=== PATIENT | female | born 1980 | race American Indian/Alaskan Native ===

== ENCOUNTER 2016-09-24 17:57 | Inpatient (IN) | payer MEDICARE ==
[2016-09-24] MEDS ORDERED: NACL 0.9% 1000 ML 1,000 ML IV ONE ×2 (19:42→23:34)
[2016-09-24] MEDS ORDERED: MORPHINE IV ONE (19:42)
--- NOTE | 2016-09-24 19:48 | Emergency Department Report ---
ED Chest Pain HPI - General Chief Complaint: Chest Pain Stated Complaint: CHEST PAIN/LUPUS/DIABETES Time Seen by Provider: 09/24/16 19:06 Source: patient Mode of arrival: Wheelchair Limitations: No Limitations - History of Present Illness Initial Comments: This is a 35-year-old -[place] female who presents to the emergency department, driven in by her , with complaint of a 2 day history of left- sided chest pain with radiation up into the left jaw as well as down into the left arm and leg. It is associated with some nausea and vomiting and the patient says she is unable to keep anything down. She tried a nitroglycerin and said it did not help. She also complains of some palpitations with tachycardia. There is shortness of breath but she denies any cough or wheezing. She has a history of CHF, insulin-dependent diabetes, hypertension and lupus. Patient has required chemotherapeutic drugs in the past for her lupus. She believes this is a lupus exacerbation. She has a primary care doctor but has not been able to see them regarding her symptoms. 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 She denies any history of CO, CVA, PE/DVT. No recent travel or sick contacts at home. Severity scale (0 -10): 9 - Related Data Allergies Allergy/AdvReac Type Severity Reaction Status Date / Time ketorolac tromethamine Allergy Swelling Verified 09/24/16 18:19 [From Toradol] metoclopramide HCl Allergy Anaphylaxis Verified 09/24/16 18:19 [From Reglan] ondansetron HCl Allergy Swelling Verified 09/24/16 18:19 [From Zofran (as hydrochloride)] EITAN score - Eitan Score Age > 65: (0) No Aspirin use within the Past 7 Days: (0) No 3 or more CAD Risk Factors: (1) Yes 2 or more Angina events in past 24 hrs: (1) Yes Known CAD with more than 50% Stenosis: (0) No Elevated Cardiac Markers: (0) No ST Deviation Greater than 0.5mm: (0) No EITAN Score: 2 ED Review of Systems ROS: Stated complaint: CHEST PAIN/LUPUS/DIABETES Other details as noted in HPI Comment: All other systems reviewed and negative Constitutional: denies: chills, fever Eyes: denies: eye pain, eye discharge, vision change ENT: denies: ear pain, throat pain Respiratory: shortness of breath. denies: cough Cardiovascular: chest pain, palpitations Gastrointestinal: nausea, vomiting Genitourinary: denies: urgency, dysuria, discharge Musculoskeletal: myalgia. denies: back pain, joint swelling, arthralgia Skin: denies: rash, lesions Neurological: denies: headache, weakness, paresthesias ED Past Medical Hx - Past Medical History Hx Hypertension: Yes Hx Congestive Heart Failure: Yes Hx Diabetes: Yes Additional medical history: LUPUS - Surgical History Hx Cholecystectomy: Yes Hx Appendectomy: Yes Additional Surgical History: TUMMY TUCK. PEG TUBE AND REMOVAL. X 3 - Social History Smoking Status: Never Smoker Substance Use Type: Prescribed ED Physical Exam - General Limitations: No Limitations - Other Other exam information: GENERAL: The patient is well-developed well-nourished. HEENT: Normocephalic. Atraumatic. Extraocular motions are intact. Patient has moist mucous membranes. Pupils equal reactive to light bilaterally. NECK: Supple. Trachea is midline. CHEST/LUNGS: Clear to auscultation. There is no respiratory distress noted. Chest pain is not reproducible to palpation of the chest wall. HEART/CARDIOVASCULAR: Regular. There is moderate tachycardia. There is no gallop rub or murmur. ABDOMEN: Abdomen is soft, nontender. Patient has normal bowel sounds. There is no abdominal distention. SKIN: There is no rash. There is no diaphoresis. NEURO: The patient is awake, alert, and oriented. The patient is cooperative. The patient has no focal neurologic deficits. The patient has normal speech. Cranial nerves II through XII grossly intact. MUSCULOSKELETAL: There is no tenderness or deformity. There is no limitation range of motion. There is no evidence of acute injury. ED Course Vital Signs 09/24/16 09/24/16 09/24/16 18:10 19:05 20:51 Temperature 98.4 F 98.8 F Pulse Rate 134 H 126 H Respiratory 26 H 14 14 Rate Blood Pressure 161/104 Blood Pressure 136/80 [Left] O2 Sat by Pulse 100 99 Oximetry 09/24/16 09/24/16 22:32 23:02 Temperature Pulse Rate Respiratory 14 16 Rate Blood Pressure Blood Pressure [Left] O2 Sat by Pulse Oximetry ED Medical Decision Making - Lab Data Result diagrams: 09/24/16 20:44 09/24/16 23:45 - EKG Data -: EKG Interpreted by Me EKG shows normal: sinus rhythm, axis, intervals (prolonged QTC), QRS complexes ( Q waves to the anterior leads), ST-T waves (nonspecific ST-T changes) Rate: tachycardia (130 bpm) - EKG Data When compared to previous EKG there are: previous EKG unavailable Interpretation: other (sinus tachycardia, Q waves to the septal leads, prolonged QTC) - Radiology Data Radiology results: report reviewed, image reviewed interpreted by me: Chest x-ray did not show any acute process. Heart is normal shape and size. No effusions. No pneumothorax. No signs of pneumonia seen. Ventilation perfusion scan is negative for pulmonary embolism. - Medical Decision Making This is a 35-year-old female with a history of lupus, diabetes and CHF who presents with a 2 day history of chest pain, shortness of breath and nausea with vomiting. Patient's vital signs are slightly abnormal as the patient has some moderate tachycardia between 1:30 and 140. EKG does not show any ST elevation CO or significant dysrhythmia. Patient appears to be in diabetic ketoacidosis. She does not have significant acidosis on her venous pH but she does have a elevated anion gap of 28, a blood sugar of greater than 400 and ketones in the blood and urine. Patient started on insulin drip and given IV fluid resuscitation. Due to her chest pain, tachycardia and shortness of breath , a d-dimer was ordered and came back elevated and equivocal. For this reason a CT angiography of the chest was going to be done but were unable to get a 20- gauge IV secondary to her dehydration and history of multiple IVs and venous sticks. For this reason a VQ scan was done and came back negative or low probability for pulmonary embolism. Patient will be admitted to the hospital for further evaluation and treatment. She has been graciously accepted by the hospitalist, Dr. Orellana. - Differential Diagnosis DKA, HHNK, CO, PE, pneumonia Critical Care Time: No Critical care attestation.: If time is entered above; I have spent that time in minutes in the direct care of this critically ill patient, excluding procedure time. ED Disposition Clinical Impression: Lupus, Dehydration Diabetic ketoacidosis Qualifiers: Diabetes mellitus type: type 1 Diabetes mellitus complication detail: without coma Qualified Code(s): E10.10 - Type 1 diabetes mellitus with ketoacidosis without coma Chest pain Qualifiers: Chest pain type: unspecified Qualified Code(s): R07.9 - Chest pain, unspecified Nausea and vomiting Qualifiers: Vomiting type: unspecified Vomiting Intractability: non-intractable Qualified Code(s): R11.2 - Nausea with vomiting, unspecified Disposition: OP ADMITTED IP TO THIS HOSP Is pt being admited?: Yes Does the pt Need Aspirin: Yes Condition: Fair Instructions: Diabetic Ketoacidosis (ED), Chest Pain (ED) Time of Disposition: 01:38
[2016-09-24] MEDS ORDERED: BENADRYL IV ONE (20:52)
[2016-09-24 20:56] LABS: Basophils % (Auto) 0.4 % (0.0-1.8); Hematocrit 40.8 % (30.3-42.9); Hemoglobin 13.6 gm/dl (10.1-14.3); Mean Corpuscular HGB Conc 33 % (30-34); Mean Corpuscular Hemoglobin 27 pg (28-32); Mean Corpuscular Volume 79 fl (79-97); Platelet Count 208 K/mm3 (140-440); Red Blood Count 5.14 M/mm3 (3.65-5.03); Red Cell Distribution Width 13.8 % (13.2-15.2); White Blood Count 9.1 K/mm3 (4.5-11.0)
[2016-09-24 21:16] LABS: Anion Gap 26 mmol/L; Blood Urea Nitrogen 8 mg/dL (7-17); Calcium 9.5 mg/dL (8.4-10.2); Carbon Dioxide 16 mmol/L (22-30); Chloride 94.2 mmol/L (98-107); Glucose 406 mg/dL (65-100); Potassium 4.1 mmol/L (3.6-5.0); Sodium 132 mmol/L (137-145)
[2016-09-24] MEDS ORDERED: NACL ONE (21:29)
[2016-09-24] MEDS ORDERED: DILAUDID IV ONE (22:20)
[2016-09-24] MEDS ORDERED: ATARAX PO ONE (22:33)
[2016-09-24] MEDS ORDERED: COMPAZINE IV ONE (22:51)
[2016-09-24] MEDS ORDERED: D50W (25GM) IV PRN (23:23)
[2016-09-25 00:20] LABS: Phosphorous 3.8 mg/dL (2.5-4.5)
[2016-09-25] MEDS ORDERED: DILAUDID IV ONE (01:06)
[2016-09-25] MEDS ORDERED: BENADRYL IV ONE (01:07)
--- NOTE | 2016-09-25 01:09 | Nuclear Medicine Report ---
FINAL REPORT PROCEDURE: NM LUNG SCAN PERF/VENT TECHNIQUE: Five mCi Tc-99m MAA was injected IV for pulmonary perfusion imaging in multiple projections. Fifteen mCi Xenon 133 gas was inhaled for pulmonary ventilation imaging in multiple projections. Injection site: RIGHT antecubital fossa. CPT 49956 HISTORY: CP, elevated dimer COMPARISON: Chest radiograph of the same date FINDINGS: Perfusion: No defects . Ventilation: No defects . IMPRESSION: Normal Examination
[2016-09-25 01:10] LABS: Blood Urea Nitrogen 8 mg/dL (7-17); Calcium 9.5 mg/dL (8.4-10.2); Carbon Dioxide 16 mmol/L (22-30); Chloride 100.4 mmol/L (98-107); Glucose 341 mg/dL (65-100); Potassium 4.3 mmol/L (3.6-5.0); Sodium 140 mmol/L (137-145)
[2016-09-25 01:20] LABS: Anion Gap 28 mmol/L
[2016-09-25 02:06] LABS: Anion Gap 27 mmol/L; Blood Urea Nitrogen 8 mg/dL (7-17); Calcium 9.5 mg/dL (8.4-10.2); Carbon Dioxide 16 mmol/L (22-30); Chloride 98.3 mmol/L (98-107); Glucose 320 mg/dL (65-100); Potassium 4.7 mmol/L (3.6-5.0); Sodium 137 mmol/L (137-145)
[2016-09-25] MEDS: NovoLIN R 100 UNITS in NACL 0.9% 99 ML IV SCH ×4 (02:08→06:01)
--- NOTE | 2016-09-25 02:37 | History and Physical Report ---
History of Present Illness Date of examination: 09/25/16 History of present illness: 35-year-old man with a history of hypertension, diabetes, lupus comes emergency room with complaints of 2 days of nausea vomiting chest pain. Pain starts in the left arm radiating to the jaw and to the left anterior chest which she describes as a sharp pain, constant, intensity 6/10. She cannot identify exacerbating or relieving factors. Admits to shortness breath, palpitation and diaphoresis. Patient states she always has palpitation Patient denies cough, abdominal pain, hematochezia, dysuria, frequency, focal weakness, dysarthria, fever chills, polydipsia polyuria, hot or cold intolerance , easy bruisability, or rash or bleeding from mucosal membrane, rhinorrhea, epistaxis, earache, tinnitus, blurry vision, eye discharge, anxiety, depression. Other review of systems negative PAST SURGICAL HISTORY: 3, cholecystectomy, appendectomy, tummy tuck, colectomy SOCIAL HISTORY: Denies alcohol, tobacco, drugs FAMILY HISTORY: Hypertension, diabetes Medications and Allergies Allergies Allergy/AdvReac Type Severity Reaction Status Date / Time ketorolac tromethamine Allergy Swelling Verified 09/24/16 18:19 [From Toradol] metoclopramide HCl Allergy Anaphylaxis Verified 09/24/16 18:19 [From Reglan] ondansetron HCl Allergy Swelling Verified 09/24/16 18:19 [From Zofran (as hydrochloride)] Active Meds: Active Medications Dextrose (D50w (25gm)) 0 ml IV PRN PRN PRN Reason: Hypoglycemia Diphenhydramine HCl (Benadryl) 25 mg IV Q6H PRN PRN Reason: Itching Insulin Human Regular 100 (units/ Sodium Chloride) 100 mls @ 4 mls/hr IV TITR [place]; 4 UNITS/HR PRN Reason: Protocol Sodium Chloride (Nacl 0.9% 1000 Ml) 1,000 mls @ 150 mls/hr IV DIRECT [place] Exam - Physical Exam Narrative exam: PGen. appearance: Patient lying in bed, no apparent distress HEENT: Normocephalic, atraumatic, pupils equally round and reactive to light, extraocular movement intact, and no sclericterus,. No JVD or thyromegaly or nodule,neck supple, no carotid bruit ,mucous membranes dry, no exudate or erythema Heart: S1, S2, regular rate and rhythm Lungs: Clear to auscultation bilaterally, breathing comfortable Abdomen: Positive bowel sounds, nontender, nondistended, no organomegaly Extremity: No edema, cyanosis, clubbing Skin: No rash, nodules, warm, dry Neuro: Oriented 3, cranial nerves II-12 intact, speech is fluent, motor and sensory intact - Constitutional Vitals: Temp Pulse Resp BP Pulse Ox 98.8 F 126 H 18 136/80 99 09/24/16 19:05 09/24/16 19:05 09/25/16 01:37 09/24/16 19:05 09/24/16 19:05 Results - Labs CBC & Chem 7: 09/24/16 20:44 09/25/16 01:30 Labs: Abnormal lab results 09/24/16 09/24/16 09/24/16 Range/Units 20:44 20:44 20:44 RBC 5.14 H (3.65-5.03) M/mm3 MCH 27 L (28-32) pg Seg Neutrophils % 84.0 H (40.0-70.0) % D-Dimer 428.06 H (0-234) ng/mlDDU Carbon Dioxide 16 L (22-30) mmol/L Creatinine 0.5 L (0.7-1.2) mg/dL Glucose 406 H (65-100) mg/dL Ketones (0.2-2.8) mg/dL 09/24/16 09/24/16 09/25/16 Range/Units 20:44 23:45 01:30 RBC (3.65-5.03) M/mm3 MCH (28-32) pg Seg Neutrophils % (40.0-70.0) % D-Dimer (0-234) ng/mlDDU Carbon Dioxide 16 L 16 L (22-30) mmol/L Creatinine 0.5 L 0.4 L (0.7-1.2) mg/dL Glucose 341 H 320 H (65-100) mg/dL Ketones 28.4 H (0.2-2.8) mg/dL - Imaging and Cardiology EKG: image reviewed (st, 130, read by me) Chest x-ray: image reviewed Assessment and Plan VQ scan negative for pulmonary emboli DKA Chest pain, rule out ACS Hypertension Admit to medicine Start insulin drip, IV fluids Check serial chemistry, fingersticks Consult critical care Check cardiac enzymes, obtain stress test Start DVT prophylaxis Continue appropriate outpatient medications
[2016-09-25] MEDS ORDERED: NACL 0.9% 1000 ML 1,000 ML IV SCH ×2 (03:00→09:00)
[2016-09-25 05:06] LABS: Blood Urea Nitrogen 7 mg/dL (7-17); Calcium 9.2 mg/dL (8.4-10.2); Carbon Dioxide 18 mmol/L (22-30); Chloride 102.7 mmol/L (98-107); Glucose 321 mg/dL (65-100); Sodium 140 mmol/L (137-145)
[2016-09-25 05:10] LABS: Anion Gap 23 mmol/L
[2016-09-25] MEDS ORDERED: NovoLIN R 100 UNITS in NACL 0.9% 99 ML IV SCH (06:05)
[2016-09-25] MEDS ORDERED: SODIUM CHLORIDE FLUSH SYRINGE 10 ML IV PRN (06:05)
[2016-09-25] MEDS ORDERED: MILK OF MAGNESIA PO PRN (06:05)
[2016-09-25] MEDS ORDERED: D50W (25GM) IV PRN (06:05)
[2016-09-25] MEDS ORDERED: DULCOLAX PR PRN (06:05)
[2016-09-25] MEDS ORDERED: D5W/0.45% NACL/KCL 20 MEQ 1,000 ML IV SCH (06:05)
[2016-09-25] MEDS ORDERED: ALUM-MAG HYDROX-SIMETH 200-200-20MG/5ML PO PRN (06:05)
[2016-09-25] MEDS ORDERED: TYLENOL PO PRN (06:05)
[2016-09-25] MEDS ORDERED: PHENERGAN PR PRN (06:05)
[2016-09-25] MEDS: BENADRYL IV PRN ×2 (06:35→14:12)
[2016-09-25] MEDS: MORPHINE IV PRN ×4 (06:35→18:08)
--- NOTE | 2016-09-25 07:07 | Admit Criteria Form ---
Admission Criteria Documentation: DIABETES Clinical Indications for Admission to Inpatient Care (Place 'X' for any and all applicable criteria): Admission is indicated by presence of ALL (if I & II) or ANY ONE (if III or IV) of the following (1)(2)(3)(4): [X]I. Diabetes is uncontrolled as indicated by ANY ONE of the following: [X]a) Diabetic ketoacidosis as indicated by ALL of the following (8): [X]i) Hyperglycemia (eg, plasma glucose greater than 200 mg/ dL (11.1 mmol/L)) [ ]ii) Acidosis (eg, arterial pH less than 7.30, serum bicarbonate level less than 15 mEq/L (mmol/L)) [X]iii) Moderate ketonuria or ketonemia [ ]b) Hyperglycemic hyperosmolar state as indicated by ALL of the following(9)(10): [ ]i) Neurologic dysfunction (eg, stupor, coma, hemiparesis , seizure)(13) [ ]ii) Plasma glucose greater than 600 mg/dL (33.3 mmol/L) [ ]iii) Serum osmolality greater than 320 mOsm/kg (mmol/kg) [X]c) Severe signs or symptoms secondary to hyperglycemia indicated by ANY ONE of the following: [ ]i) Altered mental status(10) [X]ii) Significant hypovolemia or dehydration [ ]iii) Intractable nausea or vomiting [ ]iv) Unexplained fever or severe infection [ ]v) Severe electrolyte abnormality (eg, hypokalemia, hyperkalemia, hypernatremia) [ ]II. Management at other levels of care (Also use Diabetes: Observation Care as appropriate) is not feasible because of ANY ONE of the following: [ ]a) Condition was not adequately corrected with treatment at other levels of care. [ ]b) Treatment at other levels of care is not appropriate because of condition severity (eg, hyperosmolar coma). [X]III. Contraindications and/or Inappropriate clinical situations for Observational Care in patients with Diabetes, when ANY ONE of the following is required: [X]a) Patient require specific diagnostic workup or therapeutic intervention 22 [ ]b) Patient with abnormal vital signs or altered mental status 23 [ ]IV. General contraindications and/or Inappropriate clinical situations for Observational Care in patients with Diabetes, when ANY ONE of the following is required: [ ]a) Prediction of prolongation of LOS based on ANY ONE of the following may be considered as a contraindication for observational care 2, 3, 4, 5, 6, 7, 8, 9, 10, 11 [ ]i) Age > 65 yrs. [ ]ii) Patient arriving by ambulance [ ]iii) Patient with high acuity [ ]iv) Patient requiring vital sign monitoring [ ]v) Patient on IV medication [ ]b) Systolic blood pressures 180mmHg 3,12 [ ]c) Patient with altered mental status including delirium and other alteration of consciousness, (3) [ ]d) Patient whose discharge disposition will be to a half-way home or rehabilitation home should not be managed in Emergency Department Observation Unit. CMS rule requires 3 days hospital stay before such placement.3,13 [ ]e) Patient with failure to thrive due to broad array of etiologies 3,16,17 [ ]f) Inability to ambulate 3,14 Extended stay beyond goal length of stay may be needed for(3)(20): [ ]a) Treatment of precipitating causes [ ]b) Development of hypoglycemia [ ]c) Complications of treatment [ ]d) Complications of decompensated diabetes (eg, acute gastric dilatation, persistent metabolic or neurologic derangement) [ ]e) Active Comorbidities [ ]f) Older patients( 65 years or older) The original [facility] content created by [employer] has been revised. The portions of the content which have been revised are identified through the use of italic text or in bold,and [facility] has neither reviewed nor approved the modified material. All other unmodified content is copyright [facility]. Please see references footnoted in the original [facility] edition 2016 Admission Criteria Met: Yes
--- NOTE | 2016-09-25 08:45 | XRay Report ---
PORTABLE CHEST: An AP portable view of the chest demonstrates a normal cardiac contour considering the limits of this technique. The lungs are clear with no evidence of infiltrate, fluid or failure. IMPRESSION: Normal portable chest.
[2016-09-25 08:51] LABS: Creatine Kinase MB < 1.0 ng/mL (0.0-4.0)
[2016-09-25 08:53] LABS: Anion Gap 20 mmol/L; Blood Urea Nitrogen 7 mg/dL (7-17); Calcium 9.2 mg/dL (8.4-10.2); Carbon Dioxide 18 mmol/L (22-30); Chloride 100.8 mmol/L (98-107); Cholesterol 215 mg/dL (50-199); Creatine Kinase 59 units/L (30-135); Glucose 280 mg/dL (65-100); HDL Cholesterol 50 mg/dL (40-59); LDL Cholesterol,Direct 95 mg/dL (50-130); Magnesium 1.9 mg/dL (1.7-2.3); Phosphorous 2.7 mg/dL (2.5-4.5); Potassium 3.7 mmol/L (3.6-5.0); Sodium 135 mmol/L (137-145); Triglycerides 352 mg/dL (2-149)
[2016-09-25] MEDS ORDERED: PROAIR IH PRN (08:55)
[2016-09-25] MEDS ORDERED: PROVENTIL IH PRN (09:52)
[2016-09-25] MEDS ORDERED: XANAX PO SCH (10:00)
[2016-09-25] MEDS ORDERED: LOVENOX SUB-Q SCH (10:00)
[2016-09-25] MEDS ORDERED: ZESTRIL PO SCH (10:00)
[2016-09-25] MEDS ORDERED: COREG PO SCH (10:00)
[2016-09-25] MEDS ORDERED: DELTASONE PO SCH (10:00)
[2016-09-25] MEDS ORDERED: PROCARDIA XL PO SCH (10:00)
--- NOTE | 2016-09-25 11:57 | Consultation ---
History of Present Illness Consult date: 09/25/16 Requesting physician: RADHA WALKER History of present illness: PULMONARY/CCM CONSULT NOTE (Full dictation # [id number]) Please see dictated notes for full details Medications and Allergies Allergies Allergy/AdvReac Type Severity Reaction Status Date / Time ketorolac tromethamine Allergy Swelling Verified 09/24/16 18:19 [From Toradol] metoclopramide HCl Allergy Anaphylaxis Verified 09/24/16 18:19 [From Reglan] ondansetron HCl Allergy Swelling Verified 09/24/16 18:19 [From Zofran (as hydrochloride)] Home Medications Medication Instructions Recorded Confirmed Last Taken Type ALBUTEROL Inhaler [Proair] 2 puff IH QID PRN 09/25/16 09/25/16 09/24/16 History ALPRAZolam [Xanax TAB] 2 mg PO DAILY 09/25/16 09/25/16 09/24/16 History Carvedilol [Coreg] 25 mg PO BID 09/25/16 09/25/16 09/24/16 History Insulin Aspart Prot/Aspart 35 units SQ 4XD 09/25/16 09/25/16 09/24/16 History [Novolog Mix 70/30] Insulin Detemir [Levemir] 65 unit SQ QHS 09/25/16 09/25/16 09/24/16 History Lisinopril [Zestril] 20 mg PO QDAY 09/25/16 09/25/16 09/24/16 History NIFEdipine XL [Procardia Xl] 90 mg PO QDAY 09/25/16 09/25/16 09/24/16 History predniSONE [Deltasone] 40 mg PO QDAY 09/25/16 09/25/16 09/24/16 History Active Meds: Active Medications Acetaminophen (Tylenol) 650 mg PO Q6H PRN PRN Reason: Pain Al Hydrox/Mg Hydrox/Simethicone (Alum-Mag Hydrox-Simeth [id number]/5ml) 30 ml PO Q4H PRN PRN Reason: Indigestion Albuterol (Proventil) 2.5 mg IH QIDRT PRN PRN Reason: Shortness Of Breath Alprazolam (Xanax) 2 mg PO QDAY [place] Bisacodyl (Dulcolax) 10 mg [place] QDAY PRN PRN Reason: constipation unrelieved by MOM Carvedilol (Coreg) 25 mg PO BID [place] Dextrose (D50w (25gm)) 0 ml IV ONCE PRN PRN Reason: Hypoglycemia Diphenhydramine HCl (Benadryl) 25 mg IV Q6H PRN PRN Reason: Itching Last Admin: 09/25/16 06:35 Dose: 25 mg Enoxaparin Sodium (Lovenox) 40 mg SUB-Q QDAY [place] Sodium Chloride (Nacl 0.9% 1000 Ml) 1,000 mls @ 150 mls/hr IV DIRECT [place] Sodium Chloride (Nacl 0.9% 1000 Ml) 1,000 mls @ 100 mls/hr IV DIRECT [place] Insulin Aspart (Novolog) 20 units SUB-Q AC [place] Insulin Detemir (Levemir) 35 units SUB-Q QHS [place] Lisinopril (Zestril) 20 mg PO QDAY [place] Magnesium Hydroxide (Milk Of Magnesia) 30 ml PO Q4H PRN PRN Reason: Constipation Morphine Sulfate (Morphine) 2 mg IV Q4H PRN PRN Reason: Pain, Moderate (4-6) Last Admin: 09/25/16 10:40 Dose: 2 mg Nifedipine (Procardia Xl) 90 mg PO QDAY [place] Prednisone (Deltasone) 40 mg PO QDAY [place] Promethazine HCl (Phenergan) 25 mg [place] Q6H PRN PRN Reason: N/V IF NPO AND NO IV ACCESS Sodium Chloride (Sodium Chloride Flush Syringe 10 Ml) 10 ml IV PRN PRN PRN Reason: LINE FLUSH Physical Examination Vital signs: Vital Signs Temp Pulse Resp BP Pulse Ox 98.4 F 134 H 26 H 161/104 100 09/24/16 18:10 09/24/16 18:10 09/24/16 18:10 09/24/16 18:10 09/24/16 18:10 Results - Laboratory Findings CBC and BMP: 09/24/16 20:44 09/25/16 18:20 PT/INR, D-dimer D-Dimer 428.06 ng/mlDDU (0-234) H 09/24/16 20:44 Abnormal lab findings: Abnormal Labs 09/25/16 09/25/16 09/25/16 04:22 04:45 06:00 Sodium Carbon Dioxide 18 L Creatinine 0.5 L Glucose 321 H POC Glucose 299 H 288 H Triglycerides Cholesterol 09/25/16 09/25/16 09/25/16 07:10 08:14 08:33 Sodium 135 L Carbon Dioxide 18 L Creatinine 0.5 L Glucose 280 H POC Glucose 248 H 245 H Triglycerides 352 H Cholesterol 215 H
--- NOTE | 2016-09-25 14:46 | XRay Report ---
AP CHEST: HISTORY: PICC line placement A right arm PICC has been inserted which terminates in the superior right atrium. There is mild cardiomegaly which is unchanged since yesterday's exam. The lungs are clear. No pleural effusion, infiltrate or pneumothorax has developed. IMPRESSION: Right arm PICC as described. Cardiomegaly.
[2016-09-25 14:56] VITALS: BP 154/78
[2016-09-25] MEDS ORDERED: FLUARIX QUAD 2016-2017(36 MOS+) IM ONE (15:08)
[2016-09-25 15:19] LABS: Anion Gap 17 mmol/L; Blood Urea Nitrogen 6 mg/dL (7-17); Carbon Dioxide 23 mmol/L (22-30); Chloride 101.1 mmol/L (98-107); Creatine Kinase 61 units/L (30-135); Glucose 172 mg/dL (65-100); Potassium 3.5 mmol/L (3.6-5.0); Sodium 138 mmol/L (137-145)
[2016-09-25 15:30] LABS: Creatine Kinase MB < 1.0 ng/mL (0.0-4.0)
[2016-09-25] MEDS ORDERED: NOVOLOG SUB-Q SCH (16:30)
--- NOTE | 2016-09-25 16:39 | Event Note ---
Date: 09/25/16 Patient seen and examined, at present this morning with DKA. Patient's Ativan Has been closed. We will stop insulin drip and place her on subcutaneous insulin, continue IV fluids, place on ADA diet as tolerated. We'll continue further management and care as dictated per H&P.
[2016-09-25] MEDS ORDERED: TRIPLE ANTIBIOTIC TP ONE (18:41)
[2016-09-25 18:55] LABS: Anion Gap 21 mmol/L; Blood Urea Nitrogen 7 mg/dL (7-17); Calcium 8.9 mg/dL (8.4-10.2); Carbon Dioxide 21 mmol/L (22-30); Chloride 97.5 mmol/L (98-107); Glucose 318 mg/dL (65-100); Potassium 3.3 mmol/L (3.6-5.0); Sodium 136 mmol/L (137-145)
[2016-09-25] MEDS ORDERED: LEVEMIR SUB-Q SCH (22:00)
--- NOTE | 2016-09-26 00:18 | Consultation ---
CONSULTING PHYSICIAN: Dr. Orellana. REASON FOR CONSULTATION: Diabetic ketoacidosis, need for IV insulin therapy. CHIEF COMPLAINT AND HISTORY OF PRESENT ILLNESS: The patient is a 35-year-old female with a past medical history significant amongst other things both for a diagnosis of diabetes, but also systemic lupus erythematosus who came to the Emergency Room complaining of 2 days of nausea, vomiting, and chest pain. It was radiating into the jaw. It was atypical. She could not identify aggravating or relieving factors. She was bothered it could be her lupus flaring up. She was very anxious. She was evaluated in the Emergency Room amongst other things. Venosus thromboembolic disorder workup was negative; however, she was found to be in diabetic ketoacidosis, need an ICU admission for IV insulin therapy. When I stopped by to see her, she remained on the IV insulin therapy. She was feeling a little bit better. She was concerned about her generalized body pain and asking if it was a lupus that was flaring up in her or what was happening to her. She denies tobacco use/abuse history whatsoever. That really is as much of the history of presentation as I have. PAST MEDICAL HISTORY: Diabetes, recent diagnosis of systemic lupus erythematosus, hypertension. PAST SURGICAL HISTORY: She has had 3 sections, a cholecystectomy and appendectomy, a colectomy, and a tummy tuck procedure. MEDICATIONS: She was on at the time I stopped by to see her, according to the medication administration record included the following: Tylenol 650 mg p.o. q.6 hours p.r.n. pain, albuterol treatments q.i.d. at 2.5 mg inhaled, Xanax 2 mg p.o. daily, Coreg 25 mg p.o. b.i.d., p.r.n. Dulcolax, Lovenox 40 mg subcutaneous daily, Dilaudid, she received a one-time 1 mg dose, Atarax 25 mg p.o., received a one-time dose and she was on insulin via sliding scale. ALLERGIES: To ketorolac, to Reglan, to Zofran. Nature of this allergy is unknown. DIET: Obese lady. Denies any acute weight loss or gain in the preceding few weeks to months. FAMILY AND SOCIAL HISTORY: Lives in the community. Denies alcohol, tobacco, or illicit drug use or abuse. Family history significant for hypertension and diabetes. REVIEW OF SYSTEMS: No loss of consciousness. No new onset seizures. No new onset focal weakness. No gross hematochezia or melena. No gross hematuria or dysuria. She complains of new swelling in her upper extremities, her digits really and generalized pain. Complete review of systems obtained. Pertinent positives and/or negatives as in body of history above, otherwise they are noncontributory. PHYSICAL EXAMINATION: VITAL SIGNS: At presentation, she was afebrile, temperature 98.4, pulse 134, respiratory rate 26, blood pressure 161/104, oxygen sats were 100%, inspired oxygen concentration was not recorded. HEAD, EYES, EARS, NOSE, AND THROAT: Pupils are equal, round, reactive to light. Extraocular muscle movements are intact. Grossly, no palpable lymph nodes in the supraclavicular or submandibular lymph node chains. LUNGS: Auscultation of both lung ryan was unremarkable. Lungs are clear bilaterally. HEART: Heart sounds 1 and 2 are heard, regular rate and rhythm at time of my evaluation. ABDOMEN: Soft, full, bowel sounds are positive, did not appear tender. EXTREMITIES: Without overt digital clubbing, cyanosis, or pedal edema. NEUROLOGIC: The exam was nonfocal. LABORATORY DATA: From my review are as follows: White cell count on admission 9100 with a hemoglobin of 13.6, hematocrit of 40.8, platelets 208. D-dimer was elevated at 428. Venous blood gas showed a pH of 7.35. Serum sodium was 140, potassium 4.3, chloride 100, bicarbonate was 16, BUN was 8, creatinine was 0.5, glucose was 341. Ketones are elevated at 28.4. Anion gap was around 28. Radiographic studies have been reviewed. I have also reviewed the radiologist's interpretation. Basilar increased opacities, likely breast shadows. The film is rotated to the right. Taking all of that in to context, I think this will probably be a normal chest x-ray without an acute cardiopulmonary process. ASSESSMENT AND PLAN: We have a young lady in with diabetic ketoacidosis, likely also contributing to some of her generalized pain. She certainly needs IV insulin therapy. She is looking better. The anion gap is closed. The plan will be to transition her to a long-acting insulin and reintroduce oral hypoglycemic agents or her subcutaneous insulin therapy if that is what she is on at home. I have reassured her and explained her disease processes to her. She is appropriately on DVT prophylaxis. She will be placed on GI prophylaxis. Flu and pneumonia vaccination will be per protocol. She probably will be able to transfer to the regular medical floor a little later today. Thank you very much for the consult, Dr. Orellana. We will follow along and make further recommendations as picture progresses/becomes clearer. JOB# [id number] MARGARITA/IGNACIO
== END 2016-09-25 18:50 | disposition left against medical advice (07) | DRG 639 ==
LOC: ED 17:57 → CC1 09-25 02:30 → 3A 09-25 16:09
PROVIDERS: ADMIT Internal Medicine; ATTEND Internal Medicine
PROC: 4A033R1 Measurement of Arterial Saturation, Peripheral, Percutaneous Approach (ICD-10-PCS; 2016-09-24)
PROC: 02H633Z Insertion of Infusion Device into Right Atrium, Percutaneous Approach (ICD-10-PCS; principal; 2016-09-25)
PROC: B2141ZZ Fluoroscopy of Right Heart using Low Osmolar Contrast (ICD-10-PCS; 2016-09-25)
DX: E13.10 Other specified diabetes mellitus with ketoacidosis without coma (principal); I11.0 Hypertensive heart disease with heart failure; M32.9 Systemic lupus erythematosus, unspecified; I50.9 Heart failure, unspecified; Z79.4 Long term (current) use of insulin; Z98.891 History of uterine scar from previous surgery; Z90.49 Acquired absence of other specified parts of digestive tract; Z83.3 Family history of diabetes mellitus; Z82.49 Family history of ischemic heart disease and other diseases of the circulatory system; Z88.8 Allergy status to other drugs, medicaments and biological substances; Z53.21 Procedure and treatment not carried out due to patient leaving prior to being seen by health care provider
CPT/HCPCS: 36415; 71010; 78582; 80048; 80061; 82010; 82550; 82553; 82805; 82962; 83735; 83880; 84100; 84484; 85025; 85379; 90686; 93005; 93010; 96361; 96374; 96375; 96376; A6250; A9540; A9558; J0780; J1170; J1200; J1650; J1815; J1818; J2270; J7030; J7512